=== PATIENT | male | born 1985 | race Caucasian/White ===

== ENCOUNTER 2016-12-05 06:28 | Day surgery (SDC) | payer OTHER ==
[2016-11-30 15:11] LABS: BUN (BLOOD UREA NITROGEN) 12 MG/DL (6-23); CALCIUM, SERUM 8.9 MG/DL (8.5-10.4); CHLORIDE, SERUM 105 MMOL/L (96-112); CO2 (CARBON DIOXIDE) 29 MMOL/L (24-34); CREATININE 0.97 MG/DL (0.70-1.30); GFR AFRICAN AMERICAN 122 ML/MIN (>=60); GFR NON AFRICAN AMERICAN 105 ML/MIN (>=60); GLUCOSE, SERUM 84 MG/DL (60-99); POTASSIUM, SERUM 3.7 MMOL/L (3.5-5.3); SODIUM, SERUM 141 MMOL/L (135-148)
--- NOTE | ~2016-12-05 | OP ---
Record Of Operation [facility] [address] [place]. 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 POSTOPERATIVE DIAGNOSIS: T1a malignant melanoma of the right neck. PROCEDURE PERFORMED: 1. Wide local re-excision of melanoma excision scar. 2. Complex layered closure of 8 x 4 cm defect. 3. [place] lymph node biopsy of the cervical lymph nodes x5 including. a. External jugular vein, 2251. b. Right parotid tail, 6981. c. Right level 2B5a, 378. d. Sternocleidomastoid fascia 23,445. e. Right level B, 2827. HAND MODEL: Milly Mayers. ANESTHESIA: General. COMPLICATIONS: None. CONDITION: Stable to recovery. INDICATIONS: A 31-year-old male with a thin level malignant melanoma, Mayur level 2, Breslow thickness 0.45 with 0 mitotic rate, who had also preoperative CT scanning showing level 2B5a lymph node. The risks, benefits, and alternatives to wide local excision of the excisional biopsy surgical site as well as lymphatic mapping were explained, and he agreed. PROCEDURE IN DETAIL: The patient was identified in preoperative holding, taken back to the operating room, and placed supine on the operating room table. General anesthesia was established. He was prepped and draped in a standard fashion for the operation. The right neck surgical scar was identified and a 1 cm margin was marked on either side. The Neoprobe was used to identify the lymphatic mapping sites, which were anterior up the external jugular and the level 2B 5a and its anterior superior and posterior inferior to level 2 and level 5B supraclavicular. These areas were marked and a time-out was called, and the patient and procedure were confirmed. He was prepped and draped in a standard fashion for the operation. The surgical operative sites were infiltrated subcutaneously with a total of 3 mL of 1% lidocaine with 1:100,000 epinephrine. Initially, the right neck surgical site was excised in an elliptical fashion. We then removed the Burow's triangle anteriorly at 6 o'clock to provide better access to the upper lymphatic mapping site. It would allow us to remove the lymph node noted on CT scan in the level 2B5a region. Initially, the external jugular vein was dissected and a node was noted there as well as in the tail of parotid. These were initially excised, the first node measuring 2251 on the probe and then a second node more superiorly into the tail of parotid measured 6981 on the probe. There was still Record Of Operation [facility] [address] [place]. [address] NAME: MARKUS ALCANTARA : 89 STATUS : [facility]#: [id number] AGE: 31 ADM/REG DATE : 12/05/16 MR#: [id number] REPORT SERV DATE: 12/05/16 DICTATED BY: MESHA TAVAREZ DATE: 12/05/16 REPORT STATUS : Draft TRANSCRIBED BY: MODL DATE: 12/05/16 some residual background count in the 80-100 range, less than 10% of the dominant sentinel lymph node, but we still dissected in the area to identify the additional activity. There was a node noted on ultrasound prior to doing the procedure that was in the level 2B5a region and this was dissected by identifying the spinal accessory nerve and dissecting just posterior to this down to the submuscular recess and removing the lymph nodes out of this area. This read 378 on the probe and was undetectable at that site after removal. There was still diffuse activity in the surgical area, it was hard to pinpoint over the sternomastoid muscle. We then removed the fascia over the sternomastoid muscle and this measured 23,445, and following this, the background count dropped to the 50s with our dominant sentinel node measuring 6981, so at this point, we irrigated this area, stimulated the spinal accessory nerve to ensure that it functioned, and then moved on to the level 5B supraclavicular area. A small incision was made separate from the surgical site we were working to above. We dissected through the platysma and down into the supraclavicular fat at level 5 and dissected out a lymph node that was small, normal appearing, but measured 2827 on the probe, and the background count was less than 10. This area was irrigated and then closed in layers using 3-0 Vicryl for platysma and 4-0 Prolene for the skin. We then closed the surgical site and initial sentinel node biopsy site that we worked through and this was 8 x 4 cm. After removing the Burow's triangle and undermining the area, we closed it in layers using 3-0 Vicryl suture and a 4-0 running locking Prolene suture. The patient tolerated the procedure well. There were no complications. PH/MODL Mesha Tavarez M.D. / [id number] CC: Lara Centeno JEFF S
[~2016-12-05 06:28] MED LIST: CLARIT10 PO; LOTE20 PO
== END 2016-12-05 14:39 | disposition home or self-care (01) ==
LOC: SDC 06:28
PROVIDERS: Specialist
PROC: 07B10ZX Excision of Right Neck Lymphatic, Open Approach, Diagnostic (ICD-10-PCS; 2016-12-05)
PROC: 0HB4XZZ Excision of Neck Skin, External Approach (ICD-10-PCS; principal; 2016-12-05 09:30)
DX: C43.4 Malignant melanoma of scalp and neck (principal); I10 Essential (primary) hypertension; Z79.899 Other long term (current) drug therapy; Z98.890 Other specified postprocedural states
CPT/HCPCS: 78195; 80048; 88305; 88307; 88341; 88342; A9270-GY; A9541; J0690; J2250; J2710; J3010